=== PATIENT | male | born 1945 | race Caucasian/White ===

== ENCOUNTER → 2019-12-07 16:19 | Outpatient (CLI) | payer MEDICARE, OTHER, SELFPAY ==
--- NOTE | 2019-12-07 16:22 | DI.MRI.S_ITS ---
PROCEDURE: MR SHOULDER LT WO CON INDICATIONS: PAIN LEFT SHOULDER TECHNIQUE: Noncontrast oblique coronal T2 fast spin echo with fat saturation, oblique sagittal T1 spin echo and T2 fast spin echo with fat saturation, axial T1 spin echo and T2 fast spin echo with fat saturation through the shoulder. COMPARISON: [facility] [place], CR, XR SHOULDER 2+ VIEWS LEFT, 11/27/2019, 14:06. FINDINGS: Image quality: Excellent. Rotator cuff: Full-thickness tearing of the entire supraspinatus and infraspinatus tendons. Moderate grade partial-thickness tearing of the mid/lower subscapularis tendon at the humeral insertion site, extending to the musculotendinous junction. Supraspinatus and infraspinatus atrophy. Bones and bursae: There is moderate ill-defined stress and elevation within the medial aspect of the humeral head/neck. Subchondral cysts within the lateral humeral head. Superior subluxation of the humeral head.. Severe acromioclavicular joint degeneration. The acromion demonstrates conventional anatomy, without an os acromiale. Large glenohumeral joint effusion. Capsule and soft tissues: Diffuse degenerative labral tearing. The long head of the biceps tendon demonstrates full thickness tearing. The rotator interval appears normal, without fibrosis. The coracohumeral ligament is normal in thickness. IMPRESSION: 1. Full-thickness tearing of the supraspinatus and infraspinatus tendons, with associated atrophy. 2. Partial-thickness tearing of the subscapularis. 3. Full-thickness biceps tendon tearing. 4. Acromioclavicular joint osteoarthritis. 5. Diffuse glenoid labral tearing. 6. Glenohumeral joint effusion. 7. High STIR signal intensity seen within the humeral head is likely degenerative. However, followup shoulder MRI with contrast in 3 months versus bone scan is recommended to exclude the less likely possibility of underlying neoplasm. Dictated by: Lula Tavera M.D. on 12/08/2019 at 8:55 Approved by: Lula Tavera M.D. on 12/08/2019 at 9:06
== END ==
PROVIDERS: PCP Family Medicine; Referring Provider Orthopaedic Surgery; Visit Provider Orthopaedic Surgery
DX: M25.512 Pain in left shoulder (principal); M75.122 Complete rotator cuff tear or rupture of left shoulder, not specified as traumatic; S46.112A Strain of muscle, fascia and tendon of long head of biceps, left arm, initial encounter; S43.492A Other sprain of left shoulder joint, initial encounter; M19.012 Primary osteoarthritis, left shoulder; M25.412 Effusion, left shoulder
CPT/HCPCS: 73221

== ENCOUNTER → 2023-10-02 13:12 | Outpatient (CLI) | payer MEDICARE, OTHER, SELFPAY ==
--- NOTE | 2023-10-02 13:15 | DI.MRI.S_ITS ---
PROCEDURE: MR LUMBAR SPINE WO CON INDICATIONS: inflammatory spondylopathy, lumbar region TECHNIQUE: Noncontrast sagittal T1 spin echo and T2 fast echo, sagittal STIR, and T2 fast spin echo through the lumbar spine. In cases with scoliosis, additional coronal T2 fast spin echo may be performed. COMPARISON: [facility] [place], CR, XR LUMBAR SPINE 2 OR 3 VIEWS, 09/16/2023, 13:13. Outside Facility, RG, XR L-SPINE 4-6V, 01/20/2021, 13:58. Outside Facility, RG, MRI L-SPINE W/O CONTRAST, 01/18/2021, 12:49. FINDINGS: Image quality: Excellent. Alignment and Curvature: There is trace retrolisthesis of L2 on L3, t L5 on S1. race anterolisthesis of L3 on L4. Bone Marrow: Marrow is of normal overall signal. No acute vertebral body compression fractures. Spinal Cord: Conus medullaris terminates at the L1 level. Visualized cord demonstrates normal signal and size. Paraspinous Soft Tissues: No paravertebral masses. Discs: Multilevel moderate to severe disc desiccation most severe at L3-4, L4-5. T12-L1: No disc bulge, spinal stenosis or foraminal narrowing. No interval change. L1-L2: No disc bulge or spinal stenosis. Mild left foraminal narrowing with facet and ligamentum flavum hypertrophy. Minimal interval progression. L2-L3: Mild disc bulge with mild canal narrowing. Mild bilateral foraminal narrowing with facet and ligamentum flavum hypertrophy. L3-L4: Mild disc bulge with posterior central protrusion. Overall appearance is markedly less prominent as well as near complete interval resolution of previous spinal stenosis. Severe bilateral foraminal narrowing with facet and ligamentum flavum hypertrophy. There is compression of the exiting L3 nerve roots bilaterally, right greater than left. Appearance is stable. L4-L5: Less prominent appearance of disc protrusion as well as spinal stenosis compared to prior exam. Broad-based disc bulges present including left and right foraminal components. In addition, there is compromise of the lateral recess most notably on the right. Severe left and moderate to severe right foraminal narrowing. There is prominent narrowing through the subarticular recesses bilaterally. Compression of the exiting L4 nerve roots bilaterally remains present without interval change. L5-S1: Mild disc bulge without spinal stenosis. Severe bilateral foraminal narrowing with compression of the exiting L5 nerve roots most prominent on the left. Questionable minimal interval progression. IMPRESSION: Multilevel degenerative changes with less prominent appearance of disc bulges and spinal stenosis at L3-4 and L4-5. Multilevel foraminal narrowing remaining most severe at L3-4 through L5-S1 with small areas of interval progression as described above. Dictated by: Malinda Bhakta M.D. on 10/04/2023 at 12:01 Approved by: Malinda Bhakta M.D. on 10/04/2023 at 12:18
== END ==
PROVIDERS: PCP Family Medicine; Referring Provider Physical Medicine & Rehabilitation; Visit Provider Physical Medicine & Rehabilitation
DX: M47.816 Spondylosis without myelopathy or radiculopathy, lumbar region (principal); M46.96 Unspecified inflammatory spondylopathy, lumbar region; M47.817 Spondylosis without myelopathy or radiculopathy, lumbosacral region; M51.36 Other intervertebral disc degeneration, lumbar region; M51.37 Other intervertebral disc degeneration, lumbosacral region; M48.061 Spinal stenosis, lumbar region without neurogenic claudication; M48.07 Spinal stenosis, lumbosacral region; M54.50 Low back pain, unspecified
CPT/HCPCS: 72148